=== PATIENT | female | born 1945 | race Caucasian/White ===

== ENCOUNTER → 2016-08-24 | Outpatient (CLI) | payer MEDICARE ==
[~2016-08-24] MED LIST: APRESOLINE PO; BAYER CHEWABLE81 MG PO; CELEBREX PO; CERTAGEN PO; CLARITIN10 MG PO; COMBIVENT U/D3 M1 INH; CYMBALTA30 MG PO; FIORICET W/CODE1 CAP PO; FIORINAL 50-321 EACH PO; HYDROCHLOROTH12.5 MG PO; HYDROCODONE/APA1 T16 PO; KLONOPIN2 MG PO; LAMISIL PO; LINZESS290 MCG PO; LORTAB 5-325 M1 EACH PO; LYRICA PO; MULTI VITAMIN1 EACH PO; MYRBETRIQ50 MG PO; NABUMETONE PO; NORCO 5/325 TAB1 TAB PO; NORVASC PO; NORVASC10 MG PO; PANTOPRAZOLE SO40 MG PO; PAXIL PO; PERCOCET5/325 PO; PHENERGAN25 M1 PO; PROTONIX PO; RAMIPRIL10 MG PO; RELAFEN PO; SIMVASTATIN40 MG PO; SUMATRIPTAN SU100 MG PO; SYMBICORT INH; SYNTHROID PO; TOPAMAX25 MG; TROKENDI XR100 MG PO; VITAMIN B PO; ZOCOR PO; ZOCOR20 MG PO; ZOLPIDEM TARTRA10 MG PO; [UNRECOGNIZED DRUG - OTHER] PO
--- NOTE | ~2016-08-24 | CT2 ---
[facility] A Service of [facility] RADIOLOGY TEXT RESULTS PATIENT: ZACH WILKERSON LOCATION: [facility] : 49 UNIT #: [id number] AGE: [address]: Kwasi Waer MD SEX: F ORDER DR: [id number] [facility] [address] [place], [place] [address] [id number] O MR#: [id number] Acc #: [id number] NAME: ZACH WILKERSON : 1945 SEX: F STUDY DATE/TIME: 08/24/2016 14:37 UNIT: [facility] ROOM: STUDY DESCRIPTION: CT Abd and Pelv W Cont Attending Physician: Kwasi Ware M.D. Ordering Physician: Kwasi Ware M.D. Primary Care Physician: Yannick Gabriel M.D. MEDICAL IMAGING REPORT This report is preliminary unless electronic signature is present EXAM CT abdomen and pelvis with contrast INDICATIONS Restaging anal carcinoma. Observation for metastatic disease. PROCEDURE Contrast-enhanced CT of the abdomen and pelvis. 100 mL of Isovue-370. This CT exam was performed with one or more of the following radiation dose reduction techniques: Automatic exposure control, adjustment of mA and/or kV according to patient size, and iterative reconstruction. COMPARISON 08/20/2015 FINDINGS ABDOMEN WITH CONTRAST: Included lung bases clear. Liver, spleen, kidneys, pancreas unremarkable. Previous cholecystectomy. Common duct measures up to 1.8 cm. It has not significantly changed from the previous study. Adjacent duodenal diverticulum measures up to 3 cm. Uncomplicated sigmoid diverticula. Moderate colonic stool. No abdominal adenopathy. Atherosclerotic disease in the abdominal aorta with tortuosity. Infrarenal segment measures up to 2.9 cm. PELVIS WITH CONTRAST: Previous hysterectomy. No pelvic mass. No aggressive appearing bone lesion. IMPRESSION 1. No convincing evidence for metastatic disease in the abdomen or [facility] A Service of [facility] RADIOLOGY TEXT RESULTS PATIENT: ZACH WILKERSON LOCATION: [facility] : 49 UNIT #: [id number] AGE: [address]: Kwasi Ware MD SEX: F ORDER DR: pelvis. No appreciable rectal or anal mass. 2. Incidental findings are detailed above and not significantly changed. Dictated by... Christopher Armstrong M.D. THIS IS AN ELECTRONICALLY VERIFIED REPORT Christopher Armstrong M.D. at 08/25/2016 10:02 AM EED/jesús TD: 08/24/2016 22:52 JOB #: [id number] MEDICAL IMAGING REPORT Page 1 of 1 COPY
[2016-08-24 15:05] LABS: POC - CREATININE 0.88 mg/dL (0.44-1.03); POC - GFR >60.0 mL/min (>60)
== END | disposition home or self-care (01) ==
LOC: CCAT 13:03
PROVIDERS: Internal Medicine Medical Oncology
DX: C21.0 Malignant neoplasm of anus, unspecified (principal)
CPT/HCPCS: 74177; 82565; J1642; Q9967